=== PATIENT | female | born 1980 | race Caucasian/White ===

== ENCOUNTER 2017-05-08 10:36 | Inpatient (IN) | payer OTHER ==
[~2017-05-08] VITALS: Ht 154.9 cm; Wt 52.0 kg
[2017-05-08] MEDS ORDERED: SOD CHLORIDE 0.9% 1,000 ML IV ONE ×2 (12:00→14:30)
--- NOTE | 2017-05-08 12:13 | ERD ---
ER Documentation Chief Complaint Chief Complaint BILAT ARM SWELLING AFTER WORK-OUTS, NO DARK-OLORED URINE HPI 36-year-old female presents to the emergency department rule out rhabdomyolysis. Was at [facility] today at around 09:00 am for bilateral arm swelling/joint pain. He did this started around Thursday and Thursday after her heavy work out last Thursday. He stated that he did 150 pull-ups, [employer] type workout. LMP: Stated that she is on her period at this time. A0. Denies headache, dizziness, blurry vision, neck pain, throat pain, difficulty swallowing, shoulder pain, chest pain, back pain, abdominal pain, nausea, vomiting, urinary symptoms, constipation, diarrhea, loss of bowel and bladder control, discolored urine, or possibility of being , difficulty walking, generalized weakness, unilateral weakness, difficulty walking, numbness or tingling sensation, recent long travel, difficulty breathing when lying flat, recent exposure to any illness, trauma, injury, falls , fever, chills, sweating, clammy skin. Allergies to penicillin. Past medical history of hypothyroidism and asthma. No surgical history. Medication: Albuterol, [place] Thyroid. 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 Denies smoking, use of alcoholic beverages , use of illegal drugs. ROS All systems reviewed and are negative except as per history of present illness. Allergies Allergies: Coded Allergies: Penicillins (Verified Allergy, Mild, rash, 05/08/17) Physical Exam Vitals Vital Signs Date Time Temp Pulse Resp B/P Pulse Ox O2 Delivery O2 Flow Rate FiO2 05/08/17 10:42 98.6 83 17 157/74 96 Physical Exam Const: [] Head: Atraumatic Eyes: Normal Conjunctiva ENT: Normal External Ears, Nose and Mouth. Neck: Full range of motion..~ No meningismus. Resp: Clear to auscultation bilaterally Cardio: Regular rate and rhythm, no murmurs Abd: Soft, non tender, non distended. Normal bowel sounds Skin: No petechiae or rashes Back: No midline or flank tenderness Ext: No cyanosis. Bilateral upper extremity has swelling with no discoloration.. No deformity or evidence of trauma to bilateral upper extremities. Bilateral radial pulses are within normal limits. No neurovascular deficits. Neur: Awake and alert Psych: Normal Mood and Affect Result Diagram: 05/08/17 1228 05/08/17 1228 Results 24 hrs Laboratory Tests Test 05/08/17 12:18 05/08/17 12:26 05/08/17 12:28 Urine Color STRAW Urine Clarity CLEAR Urine pH 8.0 Urine Specific [place] 1.002 Urine Ketones NEGATIVEmg/dL Urine Nitrite NEGATIVEmg/dL Urine Bilirubin NEGATIVEmg/dL Urine Urobilinogen NEGATIVEmg/dL Urine Leukocyte Esterase NEGATIVELeu/ul Urine Microscopic RBC 0/HPF Urine Microscopic WBC 0/HPF Urine Bacteria FEW/HPF Urine Hemoglobin 2+mg/dL Urine Glucose NEGATIVEmg/dL Urine Total Protein NEGATIVEmg/dl Lipase 82U/L White Blood Count 6.510^3/ul Red Blood Count 5.4410^6/ul Hemoglobin 15.5g/dl Hematocrit 46.7% Mean Corpuscular Volume 85.8fl Mean Corpuscular Hemoglobin 28.5pg Mean Corpuscular Hemoglobin Concent 33.2g/dl Red Cell Distribution Width 12.5% Platelet Count 87124^3/UL Mean Platelet Volume 10.6fl Neutrophils % 63.3% Lymphocytes % 24.5% Monocytes % 8.4% Eosinophils % 2.5% Basophils % 0.8% Nucleated Red Blood Cells % 0.0/100WBC Neutrophils # 4.110^3/ul Lymphocytes # 1.610^3/ul Monocytes # 0.610^3/ul Eosinophils # 0.210^3/ul Basophils # 0.110^3/ul Nucleated Red Blood Cells # 0.010^3/ul Erythrocyte Sedimentation Rate 5.0mm/Hr Prothrombin Time 13.0Sec Prothrombin Time Ratio 1.0 INR International Normalized Ratio 0.98 Activated Partial Thromboplast Time 26.6Sec Sodium Level 142mmol/L Potassium Level 4.4mmol/L Chloride Level 104mmol/L Carbon Dioxide Level 27mmol/L Anion Gap 15 Blood Urea Nitrogen 13mg/dl Creatinine 0.82mg/dl Glucose Level 72mg/dl Calcium Level 9.3mg/dl Total Bilirubin 0.3mg/dl Direct Bilirubin 0.00mg/dl Indirect Bilirubin 0.3mg/dl Aspartate Amino Transf (AST/SGOT) 1900IU/L Alanine Aminotransferase (ALT/SGPT) 494IU/L Alkaline Phosphatase 78IU/L Creatine Kinase IU/L Creatine Kinase Index Creatinine Kinase MB (Mass) 29.30ng/ml Troponin I < 0.012ng/ml C-Reactive Protein < 0.5mg/dl Total Protein 7.7g/dl Albumin 4.4g/dl Globulin 3.30g/dl Albumin/Globulin Ratio 1.33 Serum HCG, Qualitative NEGATIVE Current Medications Medications (Trade) Dose Ordered Sig/Madai Route PRN Reason Start Time Stop Time Status Last Admin Dose Admin Sodium Chloride 1,000 ml @ 1,000 mls/hr Q1H ONCE IV 05/08/17 12:00 05/08/17 12:59 DC 05/08/17 12:40 Sodium Chloride (NS) 1,000 ml @ 1,000 mls/hr Q1H ONCE IV 05/08/17 14:30 05/08/17 15:29 05/08/17 14:25 Procedures/MDM 36-year-old female presents to the emergency department rule out rhabdomyolysis. Was at [facility] today at around 09:00 am for bilateral arm swelling/joint pain. He did this started around Thursday and Thursday after her heavy work out last Thursday. He stated that he did 150 pull-ups, [employer] type workout. LMP: Stated that she is on her period at this time. A0. Denies headache, dizziness, blurry vision, neck pain, throat pain, difficulty swallowing, shoulder pain, chest pain, back pain, abdominal pain, nausea, vomiting, urinary symptoms, constipation, diarrhea, loss of bowel and bladder control, discolored urine, or possibility of being , difficulty walking, generalized weakness, unilateral weakness, difficulty walking, numbness or tingling sensation, recent long travel, difficulty breathing when lying flat, recent exposure to any illness, trauma, injury, falls , fever, chills, sweating, clammy skin. Allergies to penicillin. Past medical history of hypothyroidism and asthma. No surgical history. Medication: Albuterol, [place] Thyroid. 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 Denies smoking, use of alcoholic beverages , use of illegal drugs. Physical exam: Bilateral upper extremity has swelling. No deformity or evidence of trauma to bilateral upper extremities with no discoloration. Bilateral radial pulses are within normal limits. No neurovascular deficits. No CVA tenderness. No abdominal tenderness. Able to jump 10 times without developing abdominal pain. Bilateral lower extremities are unremarkable. Bilateral hips are stable and unremarkable. No neurovascular deficits. No neurological deficits. Disease process was explained to the patient. She verbalized understanding and agreed with the diagnostic test, treatment, plan of care. Case was discussed with supervising physician, Dr. Zain Chavez who agreed in my diagnostic workup, and he suggested for me to order EKG, chest x-ray. POC urine : Negative. Blood works: CK-MB mass is 29.30 ng/ml. C-reactive protein is 0.5. Globulin is 3.30 g/dl. elevated AST at 1900 IU/L. Elevated ALT at 494 IU/L. Blood myoglobin: Sent out. Bilateral upper extremity ultrasound: Awaiting to be done. Urinalysis: Straw (yellow) few on bacteria. Hemoglobin is 2+ mg/dL. I explained to the patient the blood test results as well as her diagnosis rhabdomyolysis, consists of this, pathophysiology of this. She verbalized understanding and agreed with the treatment and plan of care. EKG: Normal sinus rhythm with a ventricular rate of 70 bpm. No STEMI. Read by supervising physician, Dr. Zain Chavez. Urinalysis: Reviewed. Urine myoglobin: Send out. Treatment: IV insertion. Normal saline IV bolus. Differential diagnosis: Rhabdomyolysis versus traumatic injuries versus viral infections versus myalgias versus muscle phosphorylase deficiency versus inflammatory myositis Final diagnosis: Rhabdomyolysis Case was discussed with supervising physician, Dr. Zain Chavez who agreed with my diagnostic tests and medical decision making. He also stated to discuss this with supervising emergency room physician, Dr. John Mccracken agreed with my medical decision making. He also suggested to order a bilateral upper extremity ultrasound to rule out DVT. Dr. John Mccracken also stated that he will processed admission. Admission and plan of care was discussed with the patient who agreed to stay here at the hospital for admission. Departure Diagnosis: Primary Impression: Rhabdomyolysis Additional Impression: Swelling of upper arm ELYSE ROMERO May 08, 2017 12:13
[2017-05-08 12:58] LABS: BASOPHIL # 0.1 10^3/ul (0.0-0.1); BASOPHILS % 0.8 % (0.0-2.0); EOSINOPHILS # 0.2 10^3/ul (0.0-0.5); EOSINOPHILS % 2.5 % (0.0-7.0); HEMATOCRIT 46.7 % (37.0-47.0); HEMOGLOBIN 15.5 g/dl (12.0-16.0); LYMPHOCYTES # 1.6 10^3/ul (0.8-2.9); LYMPHOCYTES % 24.5 % (15.0-51.0); MEAN CORPUSCULAR HEMOGLOBIN 28.5 pg (29.0-33.0); MEAN CORPUSCULAR HGB CONC 33.2 g/dl (32.0-37.0); MEAN CORPUSCULAR VOLUME 85.8 fl (82.0-101.0); MEAN PLATELET VOLUME 10.6 fl (7.4-10.4); MONOCYTE # 0.6 10^3/ul (0.3-0.9); MONOCYTES % 8.4 % (0.0-11.0); NEUTROPHIL # 4.1 10^3/ul (1.6-7.5); NEUTROPHILS % 63.3 % (39.0-77.0); PLATELET COUNT 310 10^3/UL (140-415); RED BLOOD COUNT 5.44 10^6/ul (4.20-5.40); RED CELL DISTRIBUTION WIDTH 12.5 % (11.5-14.5); WHITE BLOOD COUNT 6.5 10^3/ul (4.8-10.8)
[2017-05-08 13:20] LABS: ADD UMIC YES; UR ASCORBIC ACID NEGATIVE (NEGATIVE); UR BACTERIA FEW /HPF (NONE SEEN); UR BILIRUBIN (Dip) NEGATIVE (NEGATIVE); UR BLOOD (Dip) 2+ mg/dL (NEGATIVE); UR CLARITY CLEAR (CLEAR); UR COLOR STRAW (YELLOW); UR GLUCOSE (Dip) NEGATIVE (NEGATIVE); UR KETONES (Dip) NEGATIVE (NEGATIVE); UR LEUKOCYTE ESTERASE (Dip) NEGATIVE Leu/ul (NEGATIVE); UR NITRITE (Dip) NEGATIVE (NEGATIVE); UR RBC 0 /HPF (0-5); UR SPECIFIC GRAVITY (Dip) 1.002 (1.003-1.030); UR TOTAL PROTEIN (Dip) NEGATIVE (NEGATIVE); UR UROBILINOGEN (Dip) NEGATIVE (NEGATIVE)
[2017-05-08 13:23] LABS: INR 0.98
[2017-05-08 13:24] LABS: PARTIAL THROMBOPLASTIN TIME 26.6 Sec (25.0-35.0)
[2017-05-08 13:29] LABS: ALBUMIN 4.4 g/dl (3.3-4.9); ALBUMIN/GLOBULIN RATIO 1.33; BILIRUBIN,INDIRECT 0.3 mg/dl (0-1.1); BILIRUBIN,TOTAL 0.3 mg/dl (0.2-1.3); CALCIUM 9.3 mg/dl (8.4-10.2); CREATININE 0.82 mg/dl (0.44-1.00); POTASSIUM 4.4 mmol/L (3.5-5.1); TOTAL PROTEIN 7.7 g/dl (6.1-8.1)
[2017-05-08 13:42] LABS: TROPONIN-I < 0.012 ng/ml (0.00-0.12)
[2017-05-08] MEDS ORDERED: morphine 4 MG/ML VIAL IV PRN (15:00)
[2017-05-08] MEDS ORDERED: HYDROmorphONE 1 MG/ML SYG IV PRN (15:00)
[2017-05-08] MEDS ORDERED: ONDANSETRON 4 MG INJ IV PRN (15:00)
--- NOTE | 2017-05-08 16:04 | RADRPT ---
PROCEDURE: US bilateral upper extremity venous CLINICAL INDICATION: Bilateral upper extremity swelling TECHNIQUE: Multiple longitudinal and transverse images of the bilateral upper extremity veins were obtained with ordoñez scale and color Doppler imaging. 2D grayscale measurements with compression, col or Doppler flow, and augmentation was performed. COMPARISON: None available FINDINGS: The bilateral internal jugular, subclavian, axillary, brachial, basilic, radial, ulnar, and antecubi elias fossa veins are patent and without evidence of filling defects. IMPRESSION: 1. No evidence of deep vein thrombosis involving either upper extremity RPTAT: TT Physician Tori Date Time Electronically viewed and signed by Physician Tori on 05/08/2017 16:03 MONICA/
--- NOTE | 2017-05-08 16:23 | EN ---
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 I agree with the evaluation and plan of care. Please see their documentation for full ER course and evaluation. Initial presentation: Otherwise healthy young woman presents with 3-4 days of bilateral upper extremity stiffness and swelling. Symptoms began after exercising heavily, mostly doing pull-ups. She denies other symptomatology On exam: GENERAL: Well-developed, well-nourished, well-hydrated, in no apparent distress , looks nontoxic in appearance HEENT: Moist mucous membranes, pink conjunctiva, no cervical spine tenderness or step-off deformities, no goiter, no jaundice or icterus, extraocular movements intact without pain. No submandibular induration, and no pharyngeal erythema CARDIAC: Regular rate and rhythm, no murmurs rubs or gallops LUNGS: Clear bilaterally no wheezing crackles or stridor Extremities: Soft tissue swelling to the upper extremities bilaterally including the forearm elbows and upper arms. There is mild to moderate joint effusion at the elbows bilaterally, there is no skin erythema or induration, distal pulses equal Skin: Skin is intact over the upper extremities bilaterally, there is no breakdown, no excoriation, no dermatitis, no ulcers, no vesicles Assessment and plan: Patient's CK level is so high that laboratory is unable to tested accurately, and given her overall presentation and symptomatology she will require MedSurg admission for continued medical management and to document downward trending CK levels. She is also at high risk for renal failure. It seems the patient may also have bilateral elbow joint effusions and may have suffered significant elbow sprains, other differentials to consider would be other rheumatologic etiologies. EKG performed, read by me revealed a normal sinus rhythm at 70 bpm, normal axis , narrow QRS complex, no concerning ST elevations or depressions noted. Accepting care team and consultations: I discussed the current laboratory data, diagnostic imaging and emergency care provided. Admitting team: Hospitalist Admitting team indication: Insurance directed Consulting services: Deferred to admitting team JACKI HERNANDEZ MD May 08, 2017 16:23
--- NOTE | 2017-05-08 16:59 | RADRPT ---
PROCEDURE: Right upper quadrant ultrasound CLINICAL INDICATION: Abdominal pain TECHNIQUE: Multiple real-time images were acquired of the patient's abdomen and right retroperiton eum utilizing a high resolution transducer. COMPARISON: None FINDINGS: The liver is normal in echogenicity and measures 15.2 cm. No focal hepatic masses are seen. The ga llbladder is physiologically distended. There is no evidence of gallstones, gallbladder wall thicke jonelle, or pericholecystic fluid. The intra and extrahepatic bile ducts are normal in caliber. The c ommon bile duct measures 1.9 mm. Midline images demonstrate the pancreas to be normal in echogenicity without obvious inflammatory ch brandan. Survey views of the right kidney demonstrate no evidence of hydronephrosis or renal calculi. The ri ght kidney measures 9.6 cm. IMPRESSION: Unremarkable right upper quadrant ultrasound. No evidence of cholelithiasis or acute cholecystitis. . RPTAT: HH .Lalo Montanez MD, Date Time Electronically viewed and signed by .Lalo Montanez MD, MD on 05/08/2017 16:59 .W/
[2017-05-08 17:18] LABS: HAAIG REFLEX REFLEX FILED
[2017-05-08 17:33] LABS: BARBITURATES Negative (NEGATIVE); BENZODIAZEPINES Negative (NEGATIVE); CANNABINOIDS Negative (NEGATIVE)
[2017-05-08 17:34] LABS: COCAINE Negative (NEGATIVE); OPIATES Negative (NEGATIVE)
[2017-05-08] MEDS: SOD CHLORIDE 0.9% 1,000 ML IV SCH ×3 (17:56→21:34)
[2017-05-08 17:58] VITALS: TEMP 98.4
[2017-05-08] MEDS ORDERED: ZOLPIDEM 5 MG TAB PO PRN (18:00)
[2017-05-08] MEDS ORDERED: BISACODYL (EC) 5 MG TAB PO PRN (18:00)
[2017-05-08] MEDS ORDERED: HYDROCODONE/APAP (5/325) TAB PO PRN (18:00)
[2017-05-08] MEDS ORDERED: NACL 0.9% 3 ML SYG IV SCH (18:00)
[2017-05-08] MEDS ORDERED: LORAZEPAM 0.5 MG TAB PO PRN (18:00)
[2017-05-08] MEDS ORDERED: ALBUTEROL/IPRATROPIUM (NEB) 3 ML AMP HHN PRN (18:00)
--- NOTE | 2017-05-08 18:01 | HP ---
Date/Time of Note Date/Time of Note DATE: 05/08/17 TIME: 17:55 Assessment/Plan VTE Prophylaxis VTE Prophylaxis Intervention: SCD's Assessment/Plan Chief Complaint/Hosp Course o: Physical exam General: Patient is laying in bed and answers questions appropriately Mentation: Patient is alert and oriented 4, Head: Normocephalic atraumatic Eyes: EOMI, pupils reactive to light Neck: Supple, nontender, midline Respiratory: Clear to auscultation bilaterally Cardiovascular: regular rate, no obvious murmurs Gastrointestinal: non-tender to palpation, bowel sounds heard. Neurological: Moves all extremities spontaneously Skin: No new skin lesions musculoskeletal: mild bilateral forearm swelling, no loss of sensation, 5/5 muscle strength Patient is a 36-year-old female who presents with rhabdomyolysis secondary to excessive working out Assessment and plan Rhabdomyolysis -CK is off the charts, elevated AST and ALT are likely secondary to rhabdomyolysis -Patient was bolused IV normal saline in the ED, will continue at high rate -CK in the morning, patient's creatinine is still within normal limits Elevated AST and ALT -Secondary to rhabdomyolysis -Ultrasound gallbladder negative for physical liver issue -Hepatitis studies pending Tachycardia -Likely secondary to rhabdomyolysis Bilateral arm swelling and pain -Secondary to excessive exercise -Arterial studies pending -Mild, no nerve damage evidence Disposition -IV fluids until CK is safe before DC Problems: HPI/ROS Admit Date/Time Admit Date/Time Hx of Present Illness Patient is a 36-year-old female who presents to [facility] ED after 5 days of bilateral arm swelling and pain. Patient stated that she did approximately 150 pull-ups during her [employer] exercise approximately 5 days ago and there has been swelling and pain since. Patient denies any numbness and still has full strength in all her upper extremities. Patient has no other acute complaints and takes all medications as directed patient was admitted for rhabdomyolysis. Patient denies any chest pain, nausea, vomiting, headache. PMH: Hypothyroidism, exercise-induced asthma PSH: None Social: Denies Meds: [place] Thyroid, albuterol as needed PMH/Family/Social Social History Smoking Status: Never smoker Exam/Review of Systems Vital Signs Vitals Vital Signs Date Time Temp Pulse Resp B/P Pulse Ox O2 Delivery O2 Flow Rate FiO2 05/08/17 15:51 97.6 110 18 129/89 99 Room Air Labs Result Diagram: 05/08/17 1228 05/08/17 1228 Medications Medications Current Medications Ondansetron HCl (Zofran Inj) 4 mg Q8 PRN IV nausea and vomiting; Start at 15:00 Morphine Sulfate (morphine) 4 mg Q4 PRN IV pain; Start 05/08/17 at 15:00 Hydromorphone HCl 1 mg 1 mg Q6 PRN IV severe pain; Start 05/08/17 at 15:00 Sodium Chloride (NS) 1,000 ml @ 200 mls/hr Q5H IV ; Start 05/08/17 at 15:30 Lorazepam (Ativan) 0.5 mg Q8H PRN PO ANXIETY; Start 05/08/17 at 18:00; Status UNV Acetaminophen (Tylenol Tab) 650 mg Q6H PRN PO PAIN LEVEL 1-3 OR FEVER; Start 05/08/17 at 18:00; Status UNV Acetaminophen/ Hydrocodone Bitart ([place] (5/325)) 1 tab Q6H PRN PO PAIN LEVEL 4 -6; Start 05/08/17 at 18:00; Status UNV Zolpidem Tartrate (Ambien) 5 mg QHS PRN PO INSOMNIA; Start 05/08/17 at 18:00; Status UNV Bisacodyl (Dulcolax) 5 mg DAILY PRN PO CONSTIPATION; Start 05/08/17 at 18:00; Status UNV JACKI ANTONIO May 08, 2017 18:01
[2017-05-08 18:14] LABS: HEPATITIS B CORE ANTIBODY NEGATIVE (NEGATIVE)
[2017-05-08 18:32] VITALS: BP 146/82; PULSE 57; RESP 20
[2017-05-08 18:34] VITALS: Ht 154.9 cm; Wt 52.0 kg
--- NOTE | 2017-05-08 18:56 | RADRPT ---
PROCEDURE: Bilateral upper extremity duplex arterial ultrasound CLINICAL INDICATION: Pain and swelling. TECHNIQUE: Bilateral upper extremity duplex arterial ultrasound was performed with color and ordoñez- scale imaging. Doppler interrogation utilized as well. COMPARISON: None available FINDINGS: The subclavian artery, axillary artery, and brachial artery are symmetrically intact and normal. No rmal color flow, normal Doppler waveforms, normal velocity is seen throughout the upper extremity ar terial tree bilaterally. No thrombosis is identified. IMPRESSION: 1. Unremarkable bilateral upper extremity duplex arterial ultrasound. 2. Evaluation was confined to the subclavian, axillary, and brachial arteries bilaterally. RPTAT: HMJB .Doug Frank MD, MD Date Time Electronically viewed and signed by .Doug Frank MD, on 05/08/2017 18:56 .B/
[2017-05-08] MEDS ORDERED: hydrALAzine 20 MG INJ IV PRN (19:00)
[2017-05-08 20:00] VITALS: BP 158/80; PULSE 63; RESP 20
[2017-05-08] MEDS ORDERED: SOD CHLORIDE 0.9% 1,000 ML IV SCH (21:00)
[2017-05-09 02:00] VITALS: BP 125/73; PULSE 75; RESP 20
[2017-05-09] MEDS: SOD CHLORIDE 0.9% 1,000 ML IV SCH ×4 (04:14→22:24)
[2017-05-09 06:43] LABS: BASOPHILS % 0.5 % (0.0-2.0); EOSINOPHILS # 0.3 10^3/ul (0.0-0.5); EOSINOPHILS % 4.5 % (0.0-7.0); HEMATOCRIT 39.6 % (37.0-47.0); HEMOGLOBIN 13.2 g/dl (12.0-16.0); LYMPHOCYTES # 2.3 10^3/ul (0.8-2.9); LYMPHOCYTES % 38.5 % (15.0-51.0); MEAN CORPUSCULAR HEMOGLOBIN 28.8 pg (29.0-33.0); MEAN CORPUSCULAR HGB CONC 33.3 g/dl (32.0-37.0); MEAN CORPUSCULAR VOLUME 86.3 fl (82.0-101.0); MEAN PLATELET VOLUME 10.8 fl (7.4-10.4); MONOCYTE # 0.5 10^3/ul (0.3-0.9); MONOCYTES % 8.1 % (0.0-11.0); NEUTROPHIL # 2.9 10^3/ul (1.6-7.5); NEUTROPHILS % 48.2 % (39.0-77.0); PLATELET COUNT 254 10^3/UL (140-415); RED BLOOD COUNT 4.59 10^6/ul (4.20-5.40); RED CELL DISTRIBUTION WIDTH 12.3 % (11.5-14.5)
[2017-05-09 06:49] LABS: ALBUMIN 2.9 g/dl (3.3-4.9); BILIRUBIN,INDIRECT 0.5 mg/dl (0-1.1); BILIRUBIN,TOTAL 0.5 mg/dl (0.2-1.3); CALCIUM 8.7 mg/dl (8.4-10.2); CREATININE 0.73 mg/dl (0.44-1.00); POTASSIUM 4.1 mmol/L (3.5-5.1); TOTAL PROTEIN 5.8 g/dl (6.1-8.1)
[2017-05-09 07:23] VITALS: BP 143/70; RESP 20
[2017-05-09] MEDS ORDERED: THYROID 60 MG TAB PO SCH (09:00)
--- NOTE | 2017-05-09 12:16 | PN ---
Date/Time of Note Date/Time of Note DATE: 05/09/17 TIME: 12:15 Assessment/Plan VTE Prophylaxis VTE Prophylaxis Intervention: ambulation, SCD's Lines/Catheters IV Catheter Type (from Nrs): Peripheral IV Urinary Cath still in place: No Assessment/Plan Chief Complaint/Hosp Course s: . still swelling of arms, but mildly better, no other acute issues o: Physical exam General: Patient is laying in bed and answers questions appropriately Mentation: Patient is alert and oriented 4, Head: Normocephalic atraumatic Eyes: EOMI, pupils reactive to light Neck: Supple, nontender, midline Respiratory: Clear to auscultation bilaterally Cardiovascular: regular rate, no obvious murmurs Gastrointestinal: non-tender to palpation, bowel sounds heard. Neurological: Moves all extremities spontaneously Skin: No new skin lesions musculoskeletal: mild bilateral forearm swelling, no loss of sensation, 5/5 muscle strength Patient is a 36-year-old female who presents with rhabdomyolysis secondary to excessive working out Assessment and plan Rhabdomyolysis -CK is off the charts, elevated AST and ALT are likely secondary to rhabdomyolysis -Patient was bolused IV normal saline in the ED, will continue at high rate -CK in the morning, patient's creatinine is still within normal limits Elevated AST and ALT -Secondary to rhabdomyolysis -Ultrasound gallbladder negative for physical liver issue -Hepatitis studies negative Tachycardia -Likely secondary to rhabdomyolysis Bilateral arm swelling and pain -Secondary to excessive exercise -Arterial studies neg -Mild, no nerve damage evidence Disposition -IV fluids until CK is safe before DC Problems: Exam/Review of Systems Vital Signs Vitals Vital Signs Date Time Temp Pulse Resp B/P Pulse Ox O2 Delivery O2 Flow Rate FiO2 05/09/17 07:23 98.0 62 20 143/70 97 05/09/17 02:00 Room Air Intake and Output 05/08/17 05/08/17 05/09/17 15:00 23:00 07:00 Intake Total 3000 ml 1630 ml Output Total 2000 ml Balance 3000 ml -370 ml Results Result Diagram: 05/09/17 0520 05/09/17 0520 Results 24 hrs Laboratory Tests Test 05/08/17 12:18 05/08/17 12:26 05/08/17 12:28 05/08/17 17:18 Urine Color STRAW Urine Clarity CLEAR Urine pH 8.0 Urine Specific [place] 1.002 L Urine Ketones NEGATIVE Urine Nitrite NEGATIVE Urine Bilirubin NEGATIVE Urine Urobilinogen NEGATIVE Urine Leukocyte Esterase NEGATIVE Urine Microscopic RBC 0 Urine Microscopic WBC 0 Urine Bacteria FEW A Urine Hemoglobin 2+ H Urine Myoglobin, Quantitative Pending Urine Glucose NEGATIVE Urine Total Protein NEGATIVE Myoglobin Urine Opiates Screen Negative Urine Barbiturates Negative Urine Amphetamines Screen Negative Urine Benzodiazepines Screen Negative Urine Cocaine Screen Negative Urine Cannabinoids Negative Lipase 82 Hepatitis B Surface Antigen NEGATIVE Hepatitis B Core Total Antibody NEGATIVE Hepatitis C Antibody NEGATIVE White Blood Count 6.5 Red Blood Count 5.44 H Hemoglobin 15.5 Hematocrit 46.7 Mean Corpuscular Volume 85.8 Mean Corpuscular Hemoglobin 28.5 L Mean Corpuscular Hemoglobin Concent 33.2 Red Cell Distribution Width 12.5 Platelet Count 310 Mean Platelet Volume 10.6 H Neutrophils % 63.3 Lymphocytes % 24.5 Monocytes % 8.4 Eosinophils % 2.5 Basophils % 0.8 Nucleated Red Blood Cells % 0.0 Neutrophils # 4.1 Lymphocytes # 1.6 Monocytes # 0.6 Eosinophils # 0.2 Basophils # 0.1 Nucleated Red Blood Cells # 0.0 Erythrocyte Sedimentation Rate 5.0 Prothrombin Time 13.0 Prothrombin Time Ratio 1.0 INR International Normalized Ratio 0.98 Activated Partial Thromboplast Time 26.6 Sodium Level 142 Potassium Level 4.4 Chloride Level 104 Carbon Dioxide Level 27 Anion Gap 15 Blood Urea Nitrogen 13 Creatinine 0.82 Glucose Level 72 Calcium Level 9.3 Total Bilirubin 0.3 Direct Bilirubin 0.00 Indirect Bilirubin 0.3 Aspartate Amino Transf (AST/SGOT) 1900 H Alanine Aminotransferase (ALT/SGPT) 494 H Alkaline Phosphatase 78 Creatine Kinase Creatine Kinase Index Creatinine Kinase MB (Mass) 29.30 H Troponin I < 0.012 C-Reactive Protein < 0.5 Total Protein 7.7 Albumin 4.4 Globulin 3.30 H Albumin/Globulin Ratio 1.33 Serum HCG, Qualitative NEGATIVE Hepatitis A IgM Antibody NON-REACTIVE Test 05/09/17 05:20 White Blood Count 6.0 Red Blood Count 4.59 Hemoglobin 13.2 Hematocrit 39.6 Mean Corpuscular Volume 86.3 Mean Corpuscular Hemoglobin 28.8 L Mean Corpuscular Hemoglobin Concent 33.3 Red Cell Distribution Width 12.3 Platelet Count 254 Mean Platelet Volume 10.8 H Neutrophils % 48.2 Lymphocytes % 38.5 Monocytes % 8.1 Eosinophils % 4.5 Basophils % 0.5 Nucleated Red Blood Cells % 0.0 Neutrophils # 2.9 Lymphocytes # 2.3 Monocytes # 0.5 Eosinophils # 0.3 Basophils # 0.0 Nucleated Red Blood Cells # 0.0 Sodium Level 142 Potassium Level 4.1 Chloride Level 113 H Carbon Dioxide Level 23 Anion Gap 10 # Blood Urea Nitrogen 8 Creatinine 0.73 Glucose Level 84 Calcium Level 8.7 Total Bilirubin 0.5 Direct Bilirubin 0.00 Indirect Bilirubin 0.5 Aspartate Amino Transf (AST/SGOT) 1432 H Alanine Aminotransferase (ALT/SGPT) 406 H Alkaline Phosphatase 56 Creatine Kinase 813579 H Total Protein 5.8 #L Albumin 2.9 #L Globulin 2.90 Albumin/Globulin Ratio 1.00 Thyroid Stimulating Hormone (TSH) 0.054 L Free Thyroxine 0.91 Medications Medications Current Medications Ondansetron HCl (Zofran Inj) 4 mg Q8 PRN IV nausea and vomiting; Start at 15:00 Morphine Sulfate (morphine) 4 mg Q4 PRN IV pain; Start 05/08/17 at 15:00 Hydromorphone HCl (Dilaudid) 1 mg Q6 PRN IV severe pain; Start 05/08/17 at 15: 00 Lorazepam (Ativan) 0.5 mg Q8H PRN PO ANXIETY; Start 05/08/17 at 18:00 Acetaminophen (Tylenol Tab) 650 mg Q6H PRN PO PAIN LEVEL 1-3 OR FEVER; Start 05/08/17 at 18:00 Acetaminophen/ Hydrocodone Bitart ([place] (5/325)) 1 tab Q6H PRN PO PAIN LEVEL 4 -6; Start 05/08/17 at 18:00 Zolpidem Tartrate (Ambien) 5 mg QHS PRN PO INSOMNIA; Start 05/08/17 at 18:00 Bisacodyl (Dulcolax) 5 mg DAILY PRN PO CONSTIPATION; Start 05/08/17 at 18:00 Thyroid ([place] Thyroid) 60 mg DAILY PO Last administered on 05/09/17t 08:46; Admin Dose 60 MG; Start 05/09/17 at 09:00 Hydralazine HCl 10 mg 10 mg Q4H PRN IV sbp>160; Start 05/08/17 at 19:00 Sodium Chloride (NS) 1,000 ml @ 175 mls/hr Q5H43M IV Last administered on t 10:46; Admin Dose 175 MLS/HR; Start 05/09/17 at 10:00 JACKI ANTONIO May 09, 2017 12:16
[2017-05-09 13:26] VITALS: BP 161/90; RESP 20
[2017-05-09 13:29] VITALS: BP 148/96
[2017-05-09 20:07] VITALS: BP 138/78; RESP 20
[2017-05-10 02:15] VITALS: BP 130/73; RESP 20
[2017-05-10] MEDS: SOD CHLORIDE 0.9% 1,000 ML IV SCH ×5 (03:40→22:25)
[2017-05-10 05:59] LABS: BASOPHILS % 0.4 % (0.0-2.0); EOSINOPHILS # 0.3 10^3/ul (0.0-0.5); EOSINOPHILS % 4.3 % (0.0-7.0); HEMATOCRIT 37.5 % (37.0-47.0); HEMOGLOBIN 12.5 g/dl (12.0-16.0); LYMPHOCYTES # 2.6 10^3/ul (0.8-2.9); LYMPHOCYTES % 38.8 % (15.0-51.0); MEAN CORPUSCULAR HEMOGLOBIN 29.1 pg (29.0-33.0); MEAN CORPUSCULAR HGB CONC 33.3 g/dl (32.0-37.0); MEAN CORPUSCULAR VOLUME 87.2 fl (82.0-101.0); MEAN PLATELET VOLUME 10.7 fl (7.4-10.4); MONOCYTE # 0.4 10^3/ul (0.3-0.9); MONOCYTES % 6.5 % (0.0-11.0); NEUTROPHIL # 3.4 10^3/ul (1.6-7.5); NEUTROPHILS % 49.7 % (39.0-77.0); PLATELET COUNT 220 10^3/UL (140-415); RED CELL DISTRIBUTION WIDTH 12.6 % (11.5-14.5); WHITE BLOOD COUNT 6.8 10^3/ul (4.8-10.8)
[2017-05-10 06:32] LABS: CALCIUM 8.2 mg/dl (8.4-10.2); CREATININE 0.66 mg/dl (0.44-1.00); MAGNESIUM 1.8 mg/dl (1.7-2.5); PHOSPHORUS 3.7 mg/dl (2.5-4.9); POTASSIUM 3.7 mmol/L (3.5-5.1)
[2017-05-10 07:51] VITALS: BP 131/79; RESP 16
[2017-05-10] MEDS ORDERED: ALBUTEROL HFA 8 GM INHALER INH PRN (09:30)
[2017-05-10] MEDS: THYROID 60 MG TAB PO SCH (09:54)
--- NOTE | 2017-05-10 11:20 | PN ---
Date/Time of Note Date/Time of Note DATE: 05/10/17 TIME: 11:18 Assessment/Plan VTE Prophylaxis VTE Prophylaxis Intervention: ambulation Lines/Catheters [facility] Peripheral IV Urinary Cath still in place: No Assessment/Plan Chief Complaint/Hosp Course s: 11.25 still swelling of arms, but mildly better, no other acute issues 11. no acute overnight events o: Physical exam General: Patient is laying in bed and answers questions appropriately Mentation: Patient is alert and oriented 4, Head: Normocephalic atraumatic Eyes: EOMI, pupils reactive to light Neck: Supple, nontender, midline Respiratory: Clear to auscultation bilaterally Cardiovascular: regular rate, no obvious murmurs Gastrointestinal: non-tender to palpation, bowel sounds heard. Neurological: Moves all extremities spontaneously Skin: No new skin lesions musculoskeletal: mild bilateral forearm swelling, no loss of sensation, 5/5 muscle strength Patient is a 36-year-old female who presents with rhabdomyolysis secondary to excessive working out Assessment and plan Rhabdomyolysis -CK is off the charts on admission, elevated AST and ALT are likely secondary to rhabdomyolysis -Patient was bolused IV normal saline in the ED, will continue at high rate -still significantly elevated, but downtrending appropriately -CK in the morning, patient's creatinine is still within normal limits Elevated AST and ALT -Secondary to rhabdomyolysis -Ultrasound gallbladder negative for physical liver issue -Hepatitis studies negative Tachycardia -Likely secondary to rhabdomyolysis -monitor Bilateral arm swelling and pain -Secondary to excessive exercise -Arterial studies neg -Mild, no nerve damage evidence Disposition -IV fluids until CK is safe before DC Problems: Exam/Review of Systems Vital Signs Vitals Vital Signs Date Time Temp Pulse Resp B/P Pulse Ox O2 Delivery O2 Flow Rate FiO2 05/10/17 07:51 98.2 58 16 131/79 97 05/09/17 02:00 Room Air Intake and Output 05/09/17 05/09/17 05/10/17 15:00 23:00 07:00 Intake Total 850 ml 2175 ml 2225 ml Output Total 500 ml 1800 ml Balance 350 ml 2175 ml 425 ml Results Result Diagram: 05/10/1718 05/10/17 0518 Results 24 hrs Laboratory Tests Test 05/10/17 05:18 White Blood Count 6.8 Red Blood Count 4.30 Hemoglobin 12.5 Hematocrit 37.5 Mean Corpuscular Volume 87.2 Mean Corpuscular Hemoglobin 29.1 Mean Corpuscular Hemoglobin Concent 33.3 Red Cell Distribution Width 12.6 Platelet Count 220 Mean Platelet Volume 10.7 H Neutrophils % 49.7 Lymphocytes % 38.8 Monocytes % 6.5 Eosinophils % 4.3 Basophils % 0.4 Nucleated Red Blood Cells % 0.0 Neutrophils # 3.4 Lymphocytes # 2.6 Monocytes # 0.4 Eosinophils # 0.3 Basophils # 0.0 Nucleated Red Blood Cells # 0.0 Sodium Level 140 Potassium Level 3.7 Chloride Level 109 Carbon Dioxide Level 24 Anion Gap 11 Blood Urea Nitrogen 5 L Creatinine 0.66 Glucose Level 87 Calcium Level 8.2 L Phosphorus Level 3.7 Magnesium Level 1.8 Creatine Kinase 09775 #H Medications Medications Current Medications Ondansetron HCl (Zofran Inj) 4 mg Q8 PRN IV nausea and vomiting; Start at 15:00 Morphine Sulfate (morphine) 4 mg Q4 PRN IV pain; Start 05/08/17 at 15:00 Hydromorphone HCl (Dilaudid) 1 mg Q6 PRN IV severe pain; Start 05/08/17 at 15: 00 Lorazepam (Ativan) 0.5 mg Q8H PRN PO ANXIETY; Start 05/08/17 at 18:00 Acetaminophen (Tylenol Tab) 650 mg Q6H PRN PO PAIN LEVEL 1-3 OR FEVER; Start 05/08/17 at 18:00 Acetaminophen/ Hydrocodone Bitart ([place] (5/325)) 1 tab Q6H PRN PO PAIN LEVEL 4 -6; Start 05/08/17 at 18:00 Zolpidem Tartrate (Ambien) 5 mg QHS PRN PO INSOMNIA; Start 05/08/17 at 18:00 Bisacodyl (Dulcolax) 5 mg DAILY PRN PO CONSTIPATION; Start 05/08/17 at 18:00 Hydralazine HCl 10 mg 10 mg Q4H PRN IV sbp>160; Start 05/08/17 at 19:00 Sodium Chloride (NS) 1,000 ml @ 175 mls/hr Q5H43M IV Last administered on t 09:54; Admin Dose 175 MLS/HR; Start 05/09/17 at 10:00 Thyroid ([place] Thyroid) 90 mg DAILY PO ; Start 05/11/17 at 09:00 JACKI ANTONIO May 10, 2017 11:20
[2017-05-10 15:28] VITALS: BP 135/96; RESP 12
[2017-05-10] MEDS: ACETAMINOPHEN 325 MG TAB PO PRN (15:35)
[2017-05-10 19:53] VITALS: BP 121/74; PULSE 63; RESP 18
[2017-05-11 01:55] VITALS: BP 112/67; PULSE 70; RESP 18
[2017-05-11] MEDS: SOD CHLORIDE 0.9% 1,000 ML IV SCH ×4 (04:03→21:21)
[2017-05-11] MEDS: ACETAMINOPHEN 325 MG TAB PO PRN (04:05)
[2017-05-11 06:48] LABS: BASOPHILS % 0.3 % (0.0-2.0); EOSINOPHILS # 0.3 10^3/ul (0.0-0.5); HEMATOCRIT 38.2 % (37.0-47.0); HEMOGLOBIN 13.1 g/dl (12.0-16.0); LYMPHOCYTES # 2.4 10^3/ul (0.8-2.9); LYMPHOCYTES % 38.2 % (15.0-51.0); MEAN CORPUSCULAR HEMOGLOBIN 29.6 pg (29.0-33.0); MEAN CORPUSCULAR HGB CONC 34.3 g/dl (32.0-37.0); MEAN CORPUSCULAR VOLUME 86.2 fl (82.0-101.0); MEAN PLATELET VOLUME 10.6 fl (7.4-10.4); MONOCYTE # 0.4 10^3/ul (0.3-0.9); MONOCYTES % 6.8 % (0.0-11.0); NEUTROPHIL # 3.2 10^3/ul (1.6-7.5); NEUTROPHILS % 50.5 % (39.0-77.0); PLATELET COUNT 253 10^3/UL (140-415); RED BLOOD COUNT 4.43 10^6/ul (4.20-5.40); RED CELL DISTRIBUTION WIDTH 12.4 % (11.5-14.5); WHITE BLOOD COUNT 6.3 10^3/ul (4.8-10.8)
[2017-05-11 07:20] LABS: CALCIUM 8.2 mg/dl (8.4-10.2); CREATININE 0.71 mg/dl (0.44-1.00); MAGNESIUM 1.8 mg/dl (1.7-2.5); PHOSPHORUS 4.1 mg/dl (2.5-4.9); POTASSIUM 3.7 mmol/L (3.5-5.1)
[2017-05-11 07:41] VITALS: BP 113/62; RESP 16
--- NOTE | 2017-05-11 09:54 | PN ---
Date/Time of Note Date/Time of Note DATE: 05/11/17 TIME: 09:54 Assessment/Plan VTE Prophylaxis VTE Prophylaxis Intervention: SCD's Lines/Catheters IV Catheter Type (from Nrs): Peripheral IV Urinary Cath still in place: No Assessment/Plan Assessment/Plan 1. Rhabdomyolysis - CK trending down but still very elevated at 40K - Continue with IV NS at 175cc/hr - Renal function remains stable 2. Elevated AST and ALT - Secondary to rhabdomyolysis - Ultrasound gallbladder negative for physical liver issue - Hepatitis studies negative 3. Tachycardia- resolved - Likely secondary to rhabdomyolysis - monitor 4. Bilateral arm swelling and pain - Secondary to excessive exercise - Arterial studies neg - Mild, no nerve damage evidence 5. Disposition - Continue IVF until CK closer to normal - Monitor UE swelling - Continue monitoring in med/surg Subjective 24 Hr Interval Summary Free Text/Dictation Patient doing well but still concerned about LUE swelling and feels as if abdomen is swollen as well. No acute overnight events. Exam/Review of Systems Vital Signs Vitals Vital Signs Date Time Temp Pulse Resp B/P Pulse Ox O2 Delivery O2 Flow Rate FiO2 05/11/17 07:41 98.2 58 16 113/62 98 05/11/17 01:55 Room Air Intake and Output 05/10/17 05/10/17 05/11/17 15:00 23:00 07:00 Intake Total 700 ml 5350 ml 1817 ml Output Total 4875 ml 1850 ml Balance 700 ml 475 ml -33 ml Exam General: Patient is laying in bed and answers questions appropriately Mentation: Patient is alert and oriented 4, Head: Normocephalic atraumatic Neck: Supple, nontender, midline Respiratory: Clear to auscultation bilaterally. no wheezes or rhonchi Cardiovascular: regular rate and rhythm, no obvious murmurs Gastrointestinal: non-tender to palpation, bowel sounds heard. Neurological: Moves all extremities spontaneously musculoskeletal: mild bilateral forearm swelling, no loss of sensation, 5/5 muscle strength. pulses intact Results Result Diagram: 05/11/17 0542 05/11/17 0542 Results 24 hrs Laboratory Tests Test 05/11/17 05:42 05/11/17 08:16 White Blood Count 6.3 Red Blood Count 4.43 Hemoglobin 13.1 Hematocrit 38.2 Mean Corpuscular Volume 86.2 Mean Corpuscular Hemoglobin 29.6 Mean Corpuscular Hemoglobin Concent 34.3 Red Cell Distribution Width 12.4 Platelet Count 253 Mean Platelet Volume 10.6 H Neutrophils % 50.5 Lymphocytes % 38.2 Monocytes % 6.8 Eosinophils % 4.0 Basophils % 0.3 Nucleated Red Blood Cells % 0.0 Neutrophils # 3.2 Lymphocytes # 2.4 Monocytes # 0.4 Eosinophils # 0.3 Basophils # 0.0 Nucleated Red Blood Cells # 0.0 Sodium Level 141 Potassium Level 3.7 Chloride Level 110 Carbon Dioxide Level 21 Anion Gap 14 Blood Urea Nitrogen 8 Creatinine 0.71 Glucose Level 82 Calcium Level 8.2 L Phosphorus Level 4.1 Magnesium Level 1.8 Creatine Kinase 46885 #H Lab Scanned Report REFERENCE LAB Medications Medications Current Medications Ondansetron HCl (Zofran Inj) 4 mg Q8 PRN IV nausea and vomiting; Start at 15:00 Morphine Sulfate (morphine) 4 mg Q4 PRN IV pain; Start 05/08/17 at 15:00 Hydromorphone HCl (Dilaudid) 1 mg Q6 PRN IV severe pain; Start 05/08/17 at 15: 00 Lorazepam (Ativan) 0.5 mg Q8H PRN PO ANXIETY; Start 05/08/17 at 18:00 Acetaminophen (Tylenol Tab) 650 mg Q6H PRN PO PAIN LEVEL 1-3 OR FEVER Last administered on 05/11/17 04:05; Admin Dose 650 MG; Start 05/08/17 at 18:00 Acetaminophen/ Hydrocodone Bitart ([place] (5/325)) 1 tab Q6H PRN PO PAIN LEVEL 4 -6; Start 05/08/17 at 18:00 Zolpidem Tartrate (Ambien) 5 mg QHS PRN PO INSOMNIA; Start 05/08/17 at 18:00 Bisacodyl (Dulcolax) 5 mg DAILY PRN PO CONSTIPATION; Start 05/08/17 at 18:00 Hydralazine HCl 10 mg 10 mg Q4H PRN IV sbp>160; Start 05/08/17 at 19:00 Sodium Chloride (NS) 1,000 ml @ 175 mls/hr Q5H43M IV Last administered on 09:44; Admin Dose 175 MLS/HR; Start 05/09/17 at 10:00 Thyroid ([place] Thyroid) 90 mg DAILY PO ; Start 05/11/17 at 09:00 MILAGROS CHAVEZ MD May 11, 2017 09:54
[2017-05-11] MEDS ORDERED: VITAMIN A & D 5 GM OINT PACKET TOP ONE (13:54)
[2017-05-11 14:29] VITALS: BP 115/76; RESP 16
[2017-05-11 20:15] VITALS: BP 119/78; RESP 16
[2017-05-12 02:00] VITALS: BP 113/60; RESP 18
[2017-05-12] MEDS: SOD CHLORIDE 0.9% 1,000 ML IV SCH ×4 (03:09→20:43)
[2017-05-12 06:20] LABS: ALBUMIN 2.5 g/dl (3.3-4.9); ALBUMIN/GLOBULIN RATIO 0.96; BILIRUBIN,INDIRECT 0.3 mg/dl (0-1.1); BILIRUBIN,TOTAL 0.3 mg/dl (0.2-1.3); CALCIUM 8.4 mg/dl (8.4-10.2); CREATININE 0.7 mg/dl (0.44-1.00); POTASSIUM 3.7 mmol/L (3.5-5.1); TOTAL PROTEIN 5.1 g/dl (6.1-8.1)
[2017-05-12 07:35] VITALS: BP 120/55; RESP 16
[2017-05-12] MEDS: THYROID 60 MG TAB PO SCH (09:00)
--- NOTE | 2017-05-12 09:59 | PN ---
Date/Time of Note Date/Time of Note DATE: 05/12/17 TIME: 09:54 Assessment/Plan VTE Prophylaxis VTE Prophylaxis Intervention: ambulation, SCD's Lines/Catheters IV Catheter Type (from Nrsg): Peripheral IV Urinary Cath still in place: No Assessment/Plan Assessment/Plan 1. Rhabdomyolysis- improving - CK continues to trend down appropriately, 20K today - Continue with IV NS at 175cc/hr until discharge - Renal function remains stable 2. Elevated AST and ALT- resolving - Secondary to rhabdomyolysis - AST/ALT continues to trend down - Ultrasound gallbladder negative for physical liver issue - Hepatitis studies negative 3. Tachycardia- resolved - Likely secondary to rhabdomyolysis - monitor 4. Bilateral arm swelling and pain- improving - Secondary to excessive exercise - Arterial studies neg 5. Disposition - Continue IVF - Monitor UE swelling - Continue monitoring in med/surg for another 24 hours. If no overnight issues will d/c in am Subjective 24 Hr Interval Summary Free Text/Dictation Patient feeling better and swelling in UE improving. No new complaints and no acute overnight events. Exam/Review of Systems Vital Signs Vitals Vital Signs Date Time Temp Pulse Resp B/P Pulse Ox O2 Delivery O2 Flow Rate FiO2 05/12/17 07:35 97.7 65 16 120/55 97 05/11/17 01:55 Room Air Intake and Output 05/11/17 05/11/17 05/12/17 15:00 23:00 07:00 Intake Total 3020 ml 2000 ml Output Total 1300 ml 2100 ml 1100 ml Balance -1300 ml 920 ml 900 ml Exam General: Patient walking around room in no acute distress Mentation: Patient is alert and oriented 4, Head: Normocephalic atraumatic Neck: Supple, nontender, midline Respiratory: Clear to auscultation bilaterally. no wheezes or rhonchi Cardiovascular: regular rate and rhythm, no obvious murmurs Gastrointestinal: non-tender to palpation, bowel sounds heard. Neurological: Moves all extremities spontaneously musculoskeletal: improving bilateral forearm swelling, no loss of sensation, 5/ 5 muscle strength. pulses intact Results Result Diagram: 05/11/17 0542 05/12/17 0530 Results 24 hrs Laboratory Tests Test 05/12/17 05:30 Sodium Level 141 Potassium Level 3.7 Chloride Level 111 H Carbon Dioxide Level 24 Anion Gap 10 Blood Urea Nitrogen 8 Creatinine 0.70 Glucose Level 78 Calcium Level 8.4 Total Bilirubin 0.3 Direct Bilirubin 0.00 Indirect Bilirubin 0.3 Aspartate Amino Transf (AST/SGOT) 450 H Alanine Aminotransferase (ALT/SGPT) 271 H Alkaline Phosphatase 42 Creatine Kinase 06948 #H Total Protein 5.1 L Albumin 2.5 L Globulin 2.60 Albumin/Globulin Ratio 0.96 Medications Medications Current Medications Ondansetron HCl (Zofran Inj) 4 mg Q8 PRN IV nausea and vomiting; Start at 15:00 Morphine Sulfate (morphine) 4 mg Q4 PRN IV pain; Start 05/08/17 at 15:00 Hydromorphone HCl (Dilaudid) 1 mg Q6 PRN IV severe pain; Start 05/08/17 at 15: 00 Lorazepam (Ativan) 0.5 mg Q8H PRN PO ANXIETY; Start 05/08/17 at 18:00 Acetaminophen (Tylenol Tab) 650 mg Q6H PRN PO PAIN LEVEL 1-3 OR FEVER Last administered on 05/11/17 04:05; Admin Dose 650 MG; Start 05/08/17 at 18:00 Acetaminophen/ Hydrocodone Bitart ([place] (5/325)) 1 tab Q6H PRN PO PAIN LEVEL 4 -6; Start 05/08/17 at 18:00 Zolpidem Tartrate (Ambien) 5 mg QHS PRN PO INSOMNIA; Start 05/08/17 at 18:00 Bisacodyl (Dulcolax) 5 mg DAILY PRN PO CONSTIPATION; Start 05/08/17 at 18:00 Hydralazine HCl 10 mg 10 mg Q4H PRN IV sbp>160; Start 05/08/17 at 19:00 Sodium Chloride (NS) 1,000 ml @ 175 mls/hr Q5H43M IV Last administered on 08:41; Admin Dose 175 MLS/HR; Start 05/09/17 at 10:00 Thyroid ([place] Thyroid) 90 mg DAILY PO ; Start 05/11/17 at 09:00 MILAGROS CHAVEZ MD May 12, 2017 09:59
[2017-05-12 14:18] VITALS: BP 124/77; RESP 16
[2017-05-12 20:00] VITALS: BP 125/62; RESP 20
[2017-05-13] MEDS: SOD CHLORIDE 0.9% 1,000 ML IV SCH ×2 (01:55→07:27)
[2017-05-13 02:18] VITALS: BP 117/62; RESP 20
[2017-05-13 06:15] LABS: ALBUMIN 2.9 g/dl (3.3-4.9); BILIRUBIN,INDIRECT 0.2 mg/dl (0-1.1); BILIRUBIN,TOTAL 0.2 mg/dl (0.2-1.3); CREATININE 0.73 mg/dl (0.44-1.00); TOTAL PROTEIN 5.8 g/dl (6.1-8.1)
[2017-05-13 07:30] VITALS: BP 116/63; RESP 16
[2017-05-13] MEDS: THYROID 60 MG TAB PO SCH (09:00)
--- NOTE | 2017-05-13 12:13 | PN ---
Date/Time of Note Date/Time of Note DATE: 05/13/17 TIME: 12:07 Assessment/Plan VTE Prophylaxis VTE Prophylaxis Intervention: SCD's Lines/Catheters IV Catheter Type (from Nrs): Peripheral IV Urinary Cath still in place: No Assessment/Plan Assessment/Plan 1. Rhabdomyolysis- improving - CK continues to trend down appropriately, 14K today - Continue with IV NS at 175cc/hr until discharge - Renal function remains stable 2. Elevated AST and ALT- resolving - Secondary to rhabdomyolysis - AST/ALT continues to trend down - Ultrasound gallbladder negative for physical liver issue - Hepatitis studies negative 3. Tachycardia- resolved - Likely secondary to rhabdomyolysis - monitor 4. Bilateral arm swelling and pain- improving - Secondary to excessive exercise - Arterial studies neg 5. Disposition - Medically stable for d/c home Subjective 24 Hr Interval Summary Free Text/Dictation Patient feeling better and swelling of UE has significantly improved. Has swelling of abdomen but denies any discomfort. No acute overnight events and no new complaints. Exam/Review of Systems Vital Signs Vitals Vital Signs Date Time Temp Pulse Resp B/P Pulse Ox O2 Delivery O2 Flow Rate FiO2 05/13/17 07:30 98.1 58 16 116/63 98 05/11/17 01:55 Room Air Intake and Output 05/12/17 05/12/17 05/13/17 15:00 23:00 07:00 Intake Total 2700 ml 3605 ml Output Total 1700 ml 2700 ml 2800 ml Balance -1700 ml 0 ml 805 ml Exam General: Patient walking around room in no acute distress Mentation: Patient is alert and oriented 4, Head: Normocephalic atraumatic Neck: Supple, nontender, midline Respiratory: Clear to auscultation bilaterally. no wheezes or rhonchi Cardiovascular: regular rate and rhythm, no obvious murmurs Gastrointestinal: non-tender to palpation, bowel sounds heard. mild swelling. no rebound or guarding Neurological: Moves all extremities spontaneously musculoskeletal: no loss of sensation, 5/5 muscle strength. pulses intact Results Result Diagram: 05/11/17 0542 05/13/17 0519 Results 24 hrs Laboratory Tests Test 05/13/17 05:19 Sodium Level 141 Potassium Level 4.0 Chloride Level 108 Carbon Dioxide Level 25 Anion Gap 12 Blood Urea Nitrogen 9 Creatinine 0.73 Glucose Level 81 Calcium Level 9.0 Total Bilirubin 0.2 Direct Bilirubin 0.00 Indirect Bilirubin 0.2 Aspartate Amino Transf (AST/SGOT) 322 H Alanine Aminotransferase (ALT/SGPT) 254 H Alkaline Phosphatase 46 Creatine Kinase 92366 #H Total Protein 5.8 L Albumin 2.9 L Globulin 2.90 Albumin/Globulin Ratio 1.00 Medications Medications Current Medications Ondansetron HCl (Zofran Inj) 4 mg Q8 PRN IV nausea and vomiting; Start at 15:00 Morphine Sulfate (morphine) 4 mg Q4 PRN IV pain; Start 05/08/17 at 15:00 Hydromorphone HCl (Dilaudid) 1 mg Q6 PRN IV severe pain; Start 05/08/17 at 15: 00 Lorazepam (Ativan) 0.5 mg Q8H PRN PO ANXIETY; Start 05/08/17 at 18:00 Acetaminophen (Tylenol Tab) 650 mg Q6H PRN PO PAIN LEVEL 1-3 OR FEVER Last administered on 05/11/17 04:05; Admin Dose 650 MG; Start 05/08/17 at 18:00 Acetaminophen/ Hydrocodone Bitart ([place] (5/325)) 1 tab Q6H PRN PO PAIN LEVEL 4 -6; Start 05/08/17 at 18:00 Zolpidem Tartrate (Ambien) 5 mg QHS PRN PO INSOMNIA; Start 05/08/17 at 18:00 Bisacodyl (Dulcolax) 5 mg DAILY PRN PO CONSTIPATION; Start 05/08/17 at 18:00 Hydralazine HCl 10 mg 10 mg Q4H PRN IV sbp>160; Start 05/08/17 at 19:00 Sodium Chloride (NS) 1,000 ml @ 175 mls/hr Q5H43M IV Last administered on 07:27; Admin Dose 175 MLS/HR; Start 05/09/17 at 10:00 Thyroid ([place] Thyroid) 90 mg DAILY PO ; Start 05/11/17 at 09:00 MILAGROS CHAVEZ MD May 13, 2017 12:12
[2017-05-13] MEDS ORDERED: THYR60TA PO (12:16)
--- NOTE | 2017-05-13 12:19 | PDOCDIS ---
Discharge Instructions DIAGNOSIS Discharge Diagnosis 1. Rhabdomyolysis- improving 2. Elevated AST and ALT- resolving 3. Tachycardia- resolved CONDITION Patient Condition: Good HOME CARE INSTRUCTIONS: Diet Instructions: Regular ACTIVITY: Activity Restrictions: Avoid heavy lifting (avoid lifting greater than 10 lbs until seen by PCP) Special Exercises (avoid intense exercising regimes or sprinting) FOLLOW UP/APPOINTMENTS Follow-up Plan 1. Follow up with PCP once able to establish care for repeat CK levels and Liver function test 2. Continue medications as prescribed 3. Keep well hydrated 4. Avoid heavy lifting >10lbs until cleared by your PCP 5. If symptoms worsen, go to your Urgent care or return to ED MILAGROS CHAVEZ MD May 13, 2017 12:19
--- NOTE | 2017-05-13 12:23 | DS ---
Date/Time of Note Date/Time of Note DATE: 05/13/17 TIME: 12:23 Discharge Summary Admission/Discharge Info Admit Date/Time May 08, 2017 at 16:34 Discharge Date/Time Discharge Diagnosis 1. Rhabdomyolysis- improving 2. Elevated AST and ALT- resolving 3. Tachycardia- resolved Patient Condition: Fair Procedures PROCEDURE: Right upper quadrant ultrasound CLINICAL INDICATION: Abdominal pain TECHNIQUE: Multiple real-time images were acquired of the patient's abdomen and right retroperitoneum utilizing a high resolution transducer. COMPARISON: None FINDINGS: The liver is normal in echogenicity and measures 15.2 cm. No focal hepatic masses are seen. The gallbladder is physiologically distended. There is no evidence of gallstones, gallbladder wall thickening, or pericholecystic fluid. The intra and extrahepatic bile ducts are normal in caliber. The common bile duct measures 1.9 mm. Midline images demonstrate the pancreas to be normal in echogenicity without obvious inflammatory change. Survey views of the right kidney demonstrate no evidence of hydronephrosis or renal calculi. The right kidney measures 9.6 cm. IMPRESSION: Unremarkable right upper quadrant ultrasound. No evidence of cholelithiasis or acute cholecystitis PROCEDURE: US bilateral upper extremity venous CLINICAL INDICATION: Bilateral upper extremity swelling TECHNIQUE: Multiple longitudinal and transverse images of the bilateral upper extremity veins were obtained with ordoñez scale and color Doppler imaging. 2D grayscale measurements with compression, color Doppler flow, and augmentation was performed. COMPARISON: None available FINDINGS: The bilateral internal jugular, subclavian, axillary, brachial, basilic, radial , ulnar, and antecubital fossa veins are patent and without evidence of filling defects. IMPRESSION: 1. No evidence of deep vein thrombosis involving either upper extremity Hx of Present Illness Patient is a 36-year-old female who presents to [facility] ED after 5 days of bilateral arm swelling and pain. Patient stated that she did approximately 150 pull-ups during her [employer] exercise approximately 5 days ago and there has been swelling and pain since. Patient denies any numbness and still has full strength in all her upper extremities. Patient has no other acute complaints and takes all medications as directed patient was admitted for rhabdomyolysis. Patient denies any chest pain, nausea, vomiting, headache. PMH: Hypothyroidism, exercise-induced asthma PSH: None Social: Denies Meds: [place] Thyroid, albuterol as needed Hospital Course Patient was found to have CK levels in the >100K with elevated LFTs and started on IV fluids. Patient did not have any associated electrolyte imbalances or kidney injury. US gallbladder was performed to assess transaminitis and negative for any acute abnormalities. Hepatitis studies were negative as well. Patient also presented with bilateral upper extremity swelling and Vascular ultrasound was performed to rule out DVT which was negative. Patient was continued on IV fluids and CK and LFTs were trending downwards. Patient UE swelling improved significantly and patient was discharge home in stable condition with instructions to have repeat blood work in 1 week performed and follow up with PCP as soon as possible Home Meds Active Scripts Thyroid* ([place] Thyroid*) 60 Mg Tablet, 90 MG PO DAILY for 30 Days, #30 TAB 1 Refill Prov:MILAGROS CHAVEZ MD 05/13/17 Follow-up Plan 1. Follow up with PCP once able to establish care for repeat CK levels and Liver function test 2. Continue medications as prescribed 3. Keep well hydrated 4. Avoid heavy lifting >10lbs until cleared by your PCP 5. If symptoms worsen, go to your Urgent care or return to ED Primary Care Provider Care Physician No Primary Time spent on discharge: > 30 minutes Pending Labs Laboratory Tests Test 05/13/17 05:19 Sodium Level 141mmol/L (135-144) Potassium Level 4.0mmol/L (3.5-5.1) Chloride Level 108mmol/L (97-110) Carbon Dioxide Level 25mmol/L (21-31) Anion Gap 12 (8-16) Blood Urea Nitrogen 9mg/dl (7-20) Creatinine 0.73mg/dl (0.44-1.00) Glucose Level 81mg/dl (70-220) Calcium Level 9.0mg/dl (8.4-10.2) Total Bilirubin 0.2mg/dl (0.2-1.3) Direct Bilirubin 0.00mg/dl (0.00-0.20) Indirect Bilirubin 0.2mg/dl (0-1.1) Aspartate Amino Transf (AST/SGOT) 322IU/L (15-46) Alanine Aminotransferase (ALT/SGPT) 254IU/L (13-69) Alkaline Phosphatase 46IU/L (42-121) Creatine Kinase 00561WM/L (23-200) Total Protein 5.8g/dl (6.1-8.1) Albumin 2.9g/dl (3.3-4.9) Globulin 2.90g/dl (1.3-3.2) Albumin/Globulin Ratio 1.00 MILAGROS CHAVEZ MD May 13, 2017 12:23
== END 2017-05-13 12:55 | disposition home or self-care (01) | DRG 558 ==
LOC: FTE 10:36 → MS2 16:34
PROVIDERS: ADMIT Internal Medicine; ATTEND Internal Medicine
DX: M62.82 Rhabdomyolysis (principal); E03.9 Hypothyroidism, unspecified; J45.990 Exercise induced bronchospasm; R00.0 Tachycardia, unspecified; Z88.0 Allergy status to penicillin
CPT/HCPCS: 76705; 80048; 80053; 80307; 81001; 82550; 82553; 83690; 83735; 83874; 84100; 84439; 84443; 84484; 84703; 85025; 85610; 85651; 85730; 86140; 86704; 86709; 86803; 87340; 93005; 93923; 93970; J7030